=== PATIENT | female | born 1990 | race Caucasian/White ===

== ENCOUNTER 2017-02-28 11:38 | Emergency (ER) | payer MEDICAID ==
[~2017-02-28] VITALS: Ht 162.6 cm; Wt 127.0 kg
[2017-02-28 11:58] VITALS: BP 145/92
== END 2017-02-28 12:13 | disposition home or self-care (01) ==
LOC: EMS 11:40
DX: H66.93 Otitis media, unspecified, bilateral (principal); H60.93 Unspecified otitis externa, bilateral; J02.9 Acute pharyngitis, unspecified
CPT/HCPCS: 99283

== ENCOUNTER 2017-03-03 19:12 | Emergency (ER) | payer MEDICAID ==
[~2017-03-03] VITALS: Ht 162.6 cm; Wt 127.0 kg
[2017-03-03] MEDS ORDERED: IBUP-1546 PO (19:29)
[2017-03-03] MEDS ORDERED: AMOX500C2 PO (19:29)
[2017-03-03] MEDS ORDERED: CEPHALEXIN MONOHYDRATE 500 MG CAPSULE PO ONE (22:15)
[2017-03-03] MEDS ORDERED: IBUPROFEN 800 MG TABLET PO ONE (22:15)
[2017-03-03 22:38] VITALS: BP 140/75
== END 2017-03-03 22:42 | disposition home or self-care (01) ==
LOC: EMS 19:14
DX: H66.91 Otitis media, unspecified, right ear (principal); H60.91 Unspecified otitis externa, right ear
CPT/HCPCS: 99283